=== PATIENT | male | born 1950 | race Caucasian/White ===

== ENCOUNTER 2018-05-17 07:03 | Outpatient (CLI) | payer OTHER, SELFPAY | END 2018-05-17 07:23 | PROVIDERS: PCP Emergency Medicine; Visit Provider Urology | DX: R97.20 Elevated prostate specific antigen [PSA] (principal) | CPT/HCPCS: 36415; 84153 ==

== ENCOUNTER 2018-12-05 07:05 | Outpatient (CLI) | payer MEDICARE, OTHER, SELFPAY ==
[2018-12-06 10:06] LABS: PSA, Diagnostic 9.5 ng/ml (0-4.5)
== END 2018-12-05 07:25 ==
PROVIDERS: PCP Emergency Medicine; Visit Provider Urology
DX: R97.20 Elevated prostate specific antigen [PSA] (principal)
CPT/HCPCS: 36415; 84153

== ENCOUNTER → 2018-12-11 08:46 | Outpatient (BNVA) | payer MEDICARE, OTHER, SELFPAY | PROVIDERS: PCP Emergency Medicine; Visit Provider Urology | DX: R97.20 Elevated prostate specific antigen [PSA] (principal) | CPT/HCPCS: 99213 ==

== ENCOUNTER 2019-03-08 08:05 | Outpatient (CLI) | payer MEDICARE, OTHER, SELFPAY ==
[2019-03-11 09:27] LABS: PSA, Diagnostic 11.1 ng/ml (0-4.5)
== END 2019-03-08 08:25 ==
PROVIDERS: PCP Emergency Medicine; Visit Provider Urology
DX: R97.20 Elevated prostate specific antigen [PSA] (principal)
CPT/HCPCS: 36415; 84153

== ENCOUNTER → 2019-03-15 09:00 | Outpatient (BNVA) | payer MEDICARE, OTHER, SELFPAY | PROVIDERS: PCP Emergency Medicine; Visit Provider Urology | DX: R39.9 Unspecified symptoms and signs involving the genitourinary system (principal); R97.20 Elevated prostate specific antigen [PSA] | CPT/HCPCS: 99213 ==

== ENCOUNTER 2020-02-07 03:54 | Outpatient (CLI) | payer MEDICARE, OTHER, SELFPAY ==
--- NOTE | 2020-02-07 07:00 | DI.US_ITS ---
EXAM: US PROSTATE BIOPSY CLINICAL HISTORY: biopsy for tissue diagnosis,ELEVATED PSA,R97.20 TECHNIQUE: Ultrasound performed using standard protocol. COMPARISON: US ABDOMEN ULTRASOUND (P) from 05/15/2013 FINDINGS: Ultrasound guidance was provided for prostate biopsy performed by Dr. Robles. Please see Dr. Carlos hastings's procedure note. Prostate volume is estimated at 58 cc. IMPRESSION: DATA REPOSITORY:
--- NOTE | 2020-02-07 10:15 | PROST_PTH ---
PATIENT: Lowell Rodriguez LOC: [facility] U#:[id number] AGE/SX: 69/M ROOM: RE02/07/[address]: Sam Cintron MD : 1950 BED: DIS: 02/07/2020 SPEC #: [id number] RECD: 02/07/20 12:11 STATUS: ESTER REQ #: [id number] AKHIL: 02/07/20 10:[address]: Sam Cintron DEPT: Surgical Specimen RECD BY: Phyllis Brewer ENTERED: 02/07/20 12:13 SP TYPE: PROST OTHR DR: Sp Pan DO Tissues: 1 - PROSTATE NEEDLE BIOPSY 2 - PROSTATE NEEDLE BIOPSY 3 - PROSTATE NEEDLE BIOPSY 4 - PROSTATE NEEDLE BIOPSY 5 - PROSTATE NEEDLE BIOPSY 6 - PROSTATE NEEDLE BIOPSY 7 - PROSTATE NEEDLE BIOPSY 8 - PROSTATE NEEDLE BIOPSY 9 - PROSTATE NEEDLE BIOPSY 10 - PROSTATE NEEDLE BIOPSY 11 - PROSTATE NEEDLE BIOPSY 12 - PROSTATE NEEDLE BIOPSY Procedures: GROSS AND MICRO LEVEL 4 Comments: [id number]
--- NOTE | 2020-02-07 10:33 | W.PM.OP ---
Date of service: 02/07/20 Time of Service: 10:33 Operative Note Operative Note DATE OF PROCEDURE: 02/07/20 PRE-OP DIAGNOSIS: Elevated PSA POST-OP DIAGNOSIS: same PROCEDURE: Ultrasound-guided biopsy of the prostate SURGEON: Sam Cintron ANESTHESIA: local ESTIMATED BLOOD LOSS: 25 PATHOLOGY: other (Laterally directed biopsies of the prostate (12 total)) COMPLICATIONS: None Patient was transported to: no change Patient's condition: stable Indications: This is a 69-year-old gentleman who has a history of a progressively increasing PSA level. He has never had a biopsy previously. His current PSA is up to 14.3 ng/mL. He does not have a prostate nodule on digital rectal exam, but does have a slight firmness on the right side compared to the left. He presents now for ultrasound-guided biopsy Findings: 1. Prostate volume 58 cc 2. No specific hypoechoic areas in the peripheral zone Procedure Description: The patient was given a mechanical and antibiotic bowel prep. He was brought to the radiology suite on 09/09/2019. He is placed in the left lateral position. Digital rectal exam confirmed the absence of any discrete prostate nodules. There was some slight firmness on the right side compared to the left. Transrectal imaging of the prostate was then performed using a variable megahertz transducer. The prostate was imaged in transverse and longitudinal planes. The prostatic volume was calculated at 58 cc. I did not see any definite hypoechoic areas in the peripheral zone. The architecture between the peripheral and transition zones was well demarcated. A periprosthetic nerve block was performed using 1% lidocaine without epinephrine. A total of 12 laterally directed biopsies were taken from the prostate and were sent to pathology for permanent section. The patient tolerated this procedure with no complications.
== END 2020-02-07 04:14 ==
PROVIDERS: PCP Emergency Medicine; Visit Provider Urology
DX: R97.20 Elevated prostate specific antigen [PSA] (principal); C61 Malignant neoplasm of prostate
CPT/HCPCS: 55700; 76872; 76942; 88305

== ENCOUNTER → 2020-02-18 12:47 | Outpatient (BNVA) | payer MEDICARE, OTHER, SELFPAY | PROVIDERS: PCP Emergency Medicine; Referring Provider Emergency Medicine; Visit Provider Urology | DX: C61 Malignant neoplasm of prostate (principal); R97.20 Elevated prostate specific antigen [PSA] | CPT/HCPCS: 99213 ==

== ENCOUNTER → 2020-08-18 13:53 | Outpatient (BNVA) | payer MEDICARE, OTHER, SELFPAY | PROVIDERS: PCP Emergency Medicine; Referring Provider Emergency Medicine; Visit Provider Nurse Practitioner Gerontology | DX: C61 Malignant neoplasm of prostate (principal); N40.1 Benign prostatic hyperplasia with lower urinary tract symptoms; N13.8 Other obstructive and reflux uropathy | CPT/HCPCS: 99442 ==

== ENCOUNTER 2021-01-22 01:33 | Outpatient (CLI) | payer MEDICARE, OTHER, SELFPAY | END 2021-01-22 01:34 | disposition home or self-care (01) | LOC: LBO 01:33 | PROVIDERS: PCP Emergency Medicine; Visit Provider Nurse Practitioner Gerontology | DX: C61 Malignant neoplasm of prostate (principal) | CPT/HCPCS: 36415; 84153 ==

== ENCOUNTER → 2021-01-27 10:07 | Outpatient (BNVA) | payer MEDICARE, OTHER, SELFPAY | PROVIDERS: PCP Emergency Medicine; Referring Provider Emergency Medicine; Visit Provider Nurse Practitioner Gerontology | DX: C61 Malignant neoplasm of prostate (principal); N40.1 Benign prostatic hyperplasia with lower urinary tract symptoms; N13.8 Other obstructive and reflux uropathy; Z79.899 Other long term (current) drug therapy | CPT/HCPCS: 99214 ==